=== PATIENT | male | born 1970 | race Two or more races ===

== ENCOUNTER 2022-08-23 09:29 | Emergency (ER) | payer SELFPAY ==
[2022-08-23] MEDS ORDERED: Sodium Chloride 0.9% 1,000 ML IV ONE (10:16)
[2022-08-23] MEDS ORDERED: Ketorolac 30 MG/ML SDV IVPUSH ONE (10:16)
[2022-08-23 10:33] LABS: BASOPHILS PERCENT AUTO 0.4 % (0.0-1.5); EOSINOPHILS ABSOLUTE AUTO 0.1 K/uL (0.0-0.7); EOSINOPHILS PERCENT AUTO 0.5 % (0.0-7.0); HEMATOCRIT 47.6 % (38.0-50.0); HEMOGLOBIN 16.3 g/dL (13.0-17.0); LYMPHOCYTES ABSOLUTE AUTO 2.1 K/uL (0.6-2.4); LYMPHOCYTES PERCENT AUTO 22.6 % (16.0-40.0); MEAN CORPUSCULAR HEMOGLOBIN 30.1 pg (27.0-32.0); MEAN CORPUSCULAR HGB CONC 34.2 g/dL (31.0-37.0); MONOCYTES ABSOLUTE AUTO 0.6 K/uL (0.0-0.8); MONOCYTES PERCENT AUTO 6.1 % (0.0-15.0); NEUTROPHILS ABSOLUTE AUTO 6.7 K/uL (1.4-5.7); NEUTROPHILS PERCENT AUTO 70.4 % (48.0-80.0); PLATELET COUNT,PLT 233 K/uL (150-400); RED BLOOD CELL COUNT 5.41 M/uL (4.50-5.90); WHITE BLOOD CELL COUNT,WBC 9.46 K/uL (4.0-11.0)
[2022-08-23] MEDS ORDERED: Adenosine 6 MG/2 ML SDV IVPUSH ONE ×2 (10:37→12:06)
[2022-08-23 10:41] LABS: A/G RATIO 0.6 (0.9-1.6); ALBUMIN 2.5 g/dL (3.4-5.0); BILIRUBIN TOTAL 0.4 mg/dL (0.2-1.0); CALCIUM 8.7 mg/dL (8.5-10.1); CARBON DIOXIDE,CO2 23.6 mmol/L (21.0-32.0); EST CRCL DRUG DOSING (CG) 76.21 mL/min; POTASSIUM,K 4.7 mmol/L (3.5-5.1); PROTEIN TOTAL,TP 6.8 g/dL (6.4-8.2); TSH ULTRASENSITIVE 2.45 uIU/mL (0.36-3.74)
[2022-08-23] MEDS ORDERED: Iopamidol 755 MG/ML 500 ML Multipack Bottle IVPUSH ONE (11:21)
[2022-08-23 12:03] LABS: HEMOGLOBIN A1C 12.9 %
[2022-08-23 12:29] LABS: LACTIC ACID 1.4 mmol/L (0.4-2.0)
[2022-08-23] MEDS ORDERED: Metoprolol Succinate 50 MG Tab.ER PO ONE (12:42)
== END 2022-08-23 13:20 | disposition home or self-care (01) ==
LOC: MW.ED 09:29
DX: I47.1 Supraventricular tachycardia (principal); E11.65 Type 2 diabetes mellitus with hyperglycemia; Z88.5 Allergy status to narcotic agent; Z79.84 Long term (current) use of oral hypoglycemic drugs; Z86.16 Personal history of COVID-19; Z91.148 Patient's other noncompliance with medication regimen for other reason
CPT/HCPCS: 36415; 71045; 71275; 80053; 83036; 83605; 83735; 83880; 84443; 84484; 85025; 85379; 93005; 96361; 96374; 96375; 96376; 99285; A9270; J0153; J1885; J7030; Q9967; 93010; 99284